=== PATIENT | male | born 1950 | race Caucasian/White ===

== ENCOUNTER 2021-06-29 17:37 | Inpatient (IN) | payer OTHER, SELFPAY ==
[~2021-06-29] VITALS: Ht 157.5 cm; Wt 110.2 kg
--- NOTE | 2021-06-29 17:40 | NUR ---
ER at bedside examining patient.
--- NOTE | 2021-06-29 17:40 | NUR ---
Patient to ER bed 1 to gown for evaluation. Side rails up. Report given to DONELL JAVIER.
[2021-06-29 17:45] VITALS: BP_SYST 142
--- NOTE | 2021-06-29 17:47 | NUR ---
# 20 gauge angiocath placed to lac. Use of asceptic technique. Opsite placed over site. Blood return noted. Blood for lab drawn from site. Flushed with 10 cc of normal saline. No evidence of infiltration noted. Patient tolerated well.
--- NOTE | 2021-06-29 17:50 | NUR ---
bs is 120
--- NOTE | 2021-06-29 17:52 | NUR ---
Patient transported to radiology via GURNEY, accompanied by [facility].
[2021-06-29 18:12] LABS: BASOPHILS # (AUTO) 0.1 K/uL (0.0-0.2); BASOPHILS % (AUTO) 1.3 % (0.0-2.0); EOSINOPHILS # (AUTO) 0.5 K/uL (0.0-0.4); EOSINOPHILS % (AUTO) 5.7 % (0.0-4.0); HEMATOCRIT 40.6 % (36-54); LYMPHOCYTES # (AUTO) 1.6 K/uL (1.0-5.5); LYMPHOCYTES % (AUTO) 18.8 % (20.5-51.5); MEAN CORPUSCULAR HEMOGLOBIN 32 pg (27-31); MEAN CORPUSCULAR HGB CONC 35 % (32-36); MEAN CORPUSCULAR VOLUME 92 fL (79.0-98.0); MONOCYTES # (AUTO) 0.7 K/uL (0.0-1.0); MONOCYTES % (AUTO) 8.8 % (1.7-9.3); NEUTROPHILS # (AUTO) 5.4 K/uL (1.8-7.7); NEUTROPHILS % (AUTO) 65.4 % (40.0-70.0); PLATELET COUNT (AUTO) 242 K/uL (130-430); RED BLOOD CELL COUNT(AUTO) 4.43 MIL/uL (4.2-6.2); RED CELL DISTRIBUTION WIDTH 13.5 % (9.0-15.0); WHITE BLOOD COUNT (AUTO) 8.3 K/uL (4.8-10.8)
[2021-06-29 18:24] LABS: CALCIUM 8.5 mg/dL (8.4-11.0); CREATININE 1.16 mg/dL (0.55-1.30); POTASSIUM 3.7 mmol/L (3.5-5.1); TOTAL BILIRUBIN 0.4 mg/dL (0.0-1.0)
[2021-06-29 18:25] LABS: ALBUMIN 3.6 g/dL (3.4-4.8)
[2021-06-29] MEDS ORDERED: ASPIRIN 325 MG TABLET PO ONE (18:30)
[2021-06-29 18:35] LABS: BILIRUBIN,URINE NEGATIVE (NEGATIVE); CLARITY/URINE CLEAR (CLEAR); COLOR,URINE YELLOW (YELLOW); GLUCOSE,URINE NEGATIVE (NEGATIVE); KETONES,URINE NEGATIVE (NEGATIVE); LEUKOCYTE ESTERASE ,URINE NEGATIVE (NEGATIVE); NITRITE, URINE NEGATIVE (NEGATIVE); PROTEIN URINE NEGATIVE (NEGATIVE); UROBILINOGEN,URINE 0.2 (0.2-1.0)
[2021-06-29 18:36] LABS: BLOOD, URINE TRACE (NEGATIVE)
--- NOTE | 2021-06-29 18:42 | NUR ---
PT HAS REMAINED STABLE, ALERT, WITH NO OBVIOUS DEFICITS NOTED.
--- NOTE | 2021-06-29 18:43 | NUR ---
NEUROLOGIST TELE/MONITOR ASSESSMENT DONE. PT DID WELL. PT HAS STRONG EXTREMITY STRENGTH, GOOD VERBALIZATION, AND ABLE TO WRITE WELL. IV IN PLACE. PT GAVE URINE ON HIS OWN, STANDING AT BEDSIDE.
[2021-06-29 19:00] LABS: BARBITURATE, URINE NEGATIVE (NEG <=200); BENZODIAZEPINE, URINE NEGATIVE (NEG <=150); CANNABINOID, URINE NEGATIVE (NEG <=50); COCAINE, URINE NEGATIVE (NEG <=150); METHAMPHETAMINES SCREEN,URINE NEGATIVE (NEG <=500); URINE AMPHETAMINE NEGATIVE (NEG <=500); URINE METHADONE NEGATIVE (NEG <=200)
[2021-06-29 19:01] LABS: OPIATE, URINE NEGATIVE (NEG <=100); PHENCYCLIDINE SCREEN,URINE NEGATIVE (NEG <=25); UR TRICYCLIC ANTIDEPRESSANTS NEGATIVE (NEG <=300); URINE OXYCODONE SCREEN NEGATIVE (NEG <=100); URINE PROPOXYPHENE SCREEN NEGATIVE (NEG <=300)
[2021-06-29 19:07] LABS: BACTERIA,URINE FEW /HPF (None Seen); RBC,URINE 0-3 /HPF (0-3); WBC,URINE 0-3 /HPF (0-3)
--- NOTE | 2021-06-29 19:20 | NUR ---
RECEIVED REPORT FROM YAYA TEJADA. PATIENT SITTING AT THE SIDE OF BED. STATING FEELING "FINE". VSS. AWAITING FOR CT RESULTS.
[2021-06-29] MEDS ORDERED: IOHEXOL 350 mgI/mL, 150 ML INFUS..BTL IV ONE (19:52)
--- NOTE | 2021-06-29 20:10 | NUR ---
CONSENT GIVEN FOR CTA OF NECK AND HEAD. RADIOLOGY MADE AWARE. PT TAKEN TO CTA SCAN VIA WHEELCHAIR. VSS.
--- NOTE | 2021-06-29 20:58 | NUR ---
PATIENT BACK FROM CTA. AMBULATED TO RESTROOM TO VOID.
--- NOTE | 2021-06-29 21:00 | NUR ---
DR. BAILEY AT BEDSIDE FOR EVALUATION.
--- NOTE | 2021-06-29 21:30 | NUR ---
COVID SWAB COLLECTED AND SENT TO LAB FOR ANALYSIS.
--- NOTE | 2021-06-29 22:19 | NUR ---
Patient's code status is FULL CODE paperwork completed and placed in chart.
[2021-06-29] MEDS ORDERED: HYDROcodone/ACETAMIN 5-325 MG TAB (NORCO/ VICODIN) PO PRN (22:45)
[2021-06-29] MEDS ORDERED: NACL 0.9% 1,000 ML IV SCH (22:45)
[2021-06-29] MEDS ORDERED: ONDANSETRON HCL 4 MG/2 ML VIAL IVP PRN (22:45)
--- NOTE | 2021-06-29 23:32 | NUR ---
Medicated per MD orders. IVF infusing with no s/s of infiltration at this time. Will cont to monitor
[2021-06-30] MEDS ORDERED: SUCR1TAB78 PO (01:14)
[2021-06-30] MEDS ORDERED: TADA2.5T PO (01:14)
[2021-06-30] MEDS ORDERED: PRO40 PO (01:14)
[2021-06-30] MEDS ORDERED: SPIRIVA INH (01:14)
[2021-06-30] MEDS ORDERED: BUDE10.26 INH (01:14)
--- NOTE | 2021-06-30 01:14 | NUR ---
Medication reconciliation completed with information provided by PATIENT. Any prior medication reconciliation on file was reviewed and corrected.
--- NOTE | 2021-06-30 02:38 | NUR ---
Patient resting quietly. No acute distress noted. Vital signs within normal range.
--- NOTE | 2021-06-30 03:28 | NUR ---
PERSONAL BELONGINGS DONE WITH PATIENT AT BEDSIDE.
--- NOTE | 2021-06-30 05:00 | NUR ---
Patient resting quietly. No acute distress noted. Vital signs within normal range.
--- NOTE | 2021-06-30 07:08 | NUR ---
REPORT GIVEN TO YAYA CRANDALL WHO WILL ASSUME CARE OF PATIENT.
--- NOTE | 2021-06-30 07:19 | NUR ---
Pt resting in [facility] VSS no distress noted.
--- NOTE | 2021-06-30 08:43 | NUR ---
Called and spoke with to update on pt status. He will come in and evaluate pt.
[2021-06-30] MEDS ORDERED: ENOXAPARIN SODIUM 40 MG/0.4 ML SYRINGE SUBCUT SCH (09:00)
[2021-06-30] MEDS ORDERED: ASPIRIN 81 MG TAB.CHEW PO SCH (09:00)
[2021-06-30] MEDS ORDERED: ATORVASTATIN 20 MG TABLET PO SCH (09:00)
--- NOTE | 2021-06-30 09:11 | NUR ---
Dr. Velazquez at bedside speaking with pt.
[2021-06-30 09:15] LABS: BASOPHILS # (AUTO) 0.1 K/uL (0.0-0.2); BASOPHILS % (AUTO) 0.8 % (0.0-2.0); EOSINOPHILS # (AUTO) 0.5 K/uL (0.0-0.4); HEMATOCRIT 41.9 % (36-54); HEMOGLOBIN 14.2 g/dL (14.0-18.0); LYMPHOCYTES # (AUTO) 1.5 K/uL (1.0-5.5); LYMPHOCYTES % (AUTO) 19.9 % (20.5-51.5); MEAN CORPUSCULAR HEMOGLOBIN 31 pg (27-31); MEAN CORPUSCULAR HGB CONC 34 % (32-36); MEAN CORPUSCULAR VOLUME 92 fL (79.0-98.0); MONOCYTES # (AUTO) 0.7 K/uL (0.0-1.0); MONOCYTES % (AUTO) 9.3 % (1.7-9.3); NEUTROPHILS # (AUTO) 4.9 K/uL (1.8-7.7); PLATELET COUNT (AUTO) 239 K/uL (130-430); RED BLOOD CELL COUNT(AUTO) 4.55 MIL/uL (4.2-6.2); RED CELL DISTRIBUTION WIDTH 13.2 % (9.0-15.0); WHITE BLOOD COUNT (AUTO) 7.7 K/uL (4.8-10.8)
[2021-06-30 09:29] LABS: CALCIUM 8.6 mg/dL (8.4-11.0); CREATININE 0.9 mg/dL (0.55-1.30); POTASSIUM 3.7 mmol/L (3.5-5.1)
--- NOTE | 2021-06-30 09:47 | NUR ---
Pt ate 100% of his breakfast. No distress noted. Pt drinking and eating independently. Pt states he feels better.
[2021-06-30] MEDS ORDERED: LIP20 PO (11:00)
[2021-06-30] MEDS ORDERED: ASPI-1155 PO (11:00)
[2021-06-30 11:15] VITALS: BP_SYST 132
[2021-06-30 11:20] VITALS: BP_SYST 132
--- NOTE | 2021-06-30 11:35 | NUR ---
Patient given written and verbal discharge instructions and verbalizes understanding. ER MD discussed with patient the results and treatment provided. Patient in stable condition. ID arm band removed. IV catheter removed intact and dressing applied, no active bleeding. Rx of aspiri and atorvastatin given. Patient educated on pain management and to follow up with PMD. Pain Scale 0/10. Opportunity for questions provided and answered. Medication side effect fact sheet provided.
== END 2021-06-30 11:35 | disposition home or self-care (01) | DRG 74 ==
LOC: SED 17:37 → STU 22:33
PROVIDERS: ADMIT Hospitalist; ATTEND Hospitalist
DX: G51.0 Bell's palsy (principal); G45.9 Transient cerebral ischemic attack, unspecified; G47.33 Obstructive sleep apnea (adult) (pediatric); E78.5 Hyperlipidemia, unspecified; Z20.822 Contact with and (suspected) exposure to COVID-19; J44.9 Chronic obstructive pulmonary disease, unspecified; K21.9 Gastro-esophageal reflux disease without esophagitis; Z79.899 Other long term (current) drug therapy; Z79.82 Long term (current) use of aspirin
CPT/HCPCS: 36415; 70450-TC; 70496; 70498; 71045; 76376; 80048; 80053; 80061; 80307; 81000; 84484; 85025; 85610-TC; 85730-TC; 86886; 86900; 86901; 93005; 96360; 96361; 99285; G0378; J1650; Q9967